=== PATIENT | male | born 1960 | race Caucasian/White ===

== ENCOUNTER 2017-10-15 08:14 | Emergency (ER) | payer BC, OTHER ==
[2017-10-15] MEDS ORDERED: fentaNYL 100 MCG/2 ML VIAL IVP STA (08:47)
[2017-10-15] MEDS ORDERED: ONDANSETRON 4 MG/2 ML VIAL IVP STA (08:47)
[2017-10-15] MEDS ORDERED: KETOROLAC 30 MG/ML VIAL IVP STA (08:47)
[2017-10-15] MEDS ORDERED: SODIUM CHLORIDE 0.9% 1,000 ML IV ONE (08:47)
--- NOTE | 2017-10-15 08:50 | ED Physician Documentation ---
PD HPI ABD PAIN - Stated complaint Stated Complaint: SIDE/ABD PX - Chief complaint Chief Complaint: Abd Pain - History obtained from History obtained from: Patient, Family (spouse) - History of Present Illness Timing - onset: How many hours ago (8) Timing - details: Still present Quality: Pain Location: Periumbilical Radiation: Right flank Associated symptoms: Vomiting (once) Similar symptoms before: Diagnosis (History of kidney stones.) - Additional information Additional information: The patient is a 57-year-old male who presents with abdominal pain that started acutely about 1 AM this morning. It is mostly periumbilical, but radiates to the right side. He has had one episode of vomiting. He denies diarrhea, dysuria, or fever. He has a history of kidney stones, but states this does not feel like his previous kidney stones. He has had no abdominal surgery. Review of Systems Constitutional: denies: Fever Nose: denies: Congestion Throat: denies: Sore throat Cardiac: denies: Chest pain / pressure Respiratory: denies: Dyspnea, Cough GI: reports: Abdominal Pain, Nausea, Vomiting. denies: Diarrhea : denies: Dysuria Skin: denies: Rash Musculoskeletal: denies: Back pain Neurologic: denies: Generalized weakness, Headache PD PAST MEDICAL HISTORY - Past Medical History Past Medical History: Yes Endocrine/Autoimmune: None : Kidney stones - Past Surgical History Past Surgical History: No - Present Medications Home Medications: Ambulatory Orders Medication Instructions Recorded Confirmed No Known Home Medications [No 10/15/17 10/15/17 Known Home Medications] - Allergies Allergies/Adverse Reactions: Allergies Allergy/AdvReac Type Severity Reaction Status Date / Time No Known Drug Allergies Allergy Verified 10/15/17 08:28 - Living Situation Living Situation: reports: With spouse/s.o. - Social History Does the pt smoke?: No Smoking Status: Never smoker PD ED PE NORMAL - Vitals Vital signs reviewed: Yes (hypertensive) - General General: Alert and oriented X 3, Well developed/nourished - HEENT HEENT: Atraumatic, Moist mucous membranes - Neck Neck: Supple, no meningeal sign, No JVD - Cardiac Cardiac: RRR, No murmur - Respiratory Respiratory: No respiratory distress, Clear bilaterally - Abdomen Abdomen: Normal bowel sounds, Soft, Non tender, Other (No tenderness with palpation of the abdomen, despite abdominal pain.) - Back Back: No CVA TTP - Derm Derm: No rash - Extremities Extremities: No edema, No calf tenderness / cord - Neuro Neuro: Alert and oriented X 3, No motor deficit, Normal speech Results - Vitals Vitals: Vital Signs - 24 hr 10/15/17 10/15/17 10/15/17 08:25 10:07 13:06 Temperature 36.1 C L 36.3 C L Heart Rate 70 81 78 Respiratory 18 20 18 Rate Blood Pressure 162/100 H 107/47 L 110/50 L O2 Saturation 99 98 98 Oxygen O2 Source Room air - Labs Labs: Laboratory Tests 10/15/17 10/15/17 10/15/17 08:30 08:30 09:25 WBC 12.0 H RBC 4.75 Hgb 14.4 Hct 41.6 L MCV 87.5 MCH 30.2 MCHC 34.5 RDW 14.1 Plt Count 148 MPV 8.9 Neut # (Auto) 10.6 H Lymph # (Auto) 1.0 L [place] # (Auto) 0.3 Eos # (Auto) 0.0 Baso # (Auto) 0.1 Absolute Nucleated RBC 0.00 Nucleated RBC % 0.0 Sodium 137 Potassium 4.2 Chloride 104 Carbon Dioxide 24 Anion Gap 9.0 BUN 15 Creatinine 0.9 Estimated GFR (MDRD) 86 L Glucose 157 H Calcium 9.4 Total Bilirubin 0.8 AST 36 ALT 29 Alkaline Phosphatase 63 Total Protein 7.4 Albumin 4.4 Globulin 3.0 Albumin/Globulin Ratio 1.5 Lipase 28 Urine Color YELLOW Urine Clarity CLEAR Urine pH 7.0 Ur Specific [place] 1.015 Urine Protein NEGATIVE Urine Glucose (UA) NEGATIVE Urine Ketones TRACE Urine Occult Blood NEGATIVE Urine Nitrite NEGATIVE Urine Bilirubin NEGATIVE Urine Urobilinogen 0.2 (NORMAL) Ur Leukocyte Esterase NEGATIVE Ur Microscopic Review NOT INDICATED Urine Culture Comments NOT INDICATED - Rads (name of study) CT abd/pelvis w/o Radiology: Prelim report reviewed, EMP read contemporaneously, See rad report ( 1) Nonobstructing right renal calculus. No obstructing calculi are identified. No hydronephrosis. 2) normal appendix. No bowel obstruction. No diverticulitis. 3) cholelithiasis versus gallbladder sludge. No pericholecystic edema.) RUQ U/S Radiology: Prelim report reviewed, EMP read contemporaneously, See rad report (1 ) No sonographic evidence of cholecystitis. Gallbladder sludge. 2) 1 cm echogenic right lower pole renal focus. Follow-up ultrasound for stability in 6 months versus definitive characterization with multiphase contrast-enhanced CT renal mass protocol.) PD MEDICAL DECISION MAKING - ED course Complexity details: reviewed results, re-evaluated patient, considered differential, d/w patient, d/w family ED course: The patient's presentation is most consistent with biliary colic. Given his past history of kidney stones, renal colic was initially considered. However urinalysis was negative, and CT scan of the abdomen and pelvis without contrast revealed no evidence of ureteral stone or hydronephrosis, although it did reveal a nonobstructing renal calculus, as well as evidence of gallstone versus sludge in the gallbladder. Subsequent ultrasound of the right upper quadrant reveals gallbladder sludge, without evidence of cholecystitis. CBC reveals a very slightly elevated blood cell count of 12.0. Chemistry panel is normal. Treatment in the emergency department included administration of normal saline 1 L IV, ketorolac 30 mg IV, fentanyl 50 g IV, and ondansetron 4 mg IV. His symptoms completely resolved with the above treatment and did not recur during the remainder of his time in the emergency department. On repeated abdominal examinations his abdomen is totally benign. I discussed with him and his the likely diagnosis, symptomatic treatment and outpatient follow-up, as well as potentially worrisome signs or symptoms that should prompt reevaluation in the emergency department. - Sepsis Event Vital Signs: Vital Signs - 24 hr 10/15/17 10/15/17 10/15/17 08:25 10:07 13:06 Temperature 36.1 C L 36.3 C L Heart Rate 70 81 78 Respiratory 18 20 18 Rate Blood Pressure 162/100 H 107/47 L 110/50 L O2 Saturation 99 98 98 Oxygen O2 Source Room air Departure - Departure Disposition: 01 Home, Self Care Clinical Impression: Sludge in gallbladder, Renal calculus, right Abdominal pain Qualifiers: Abdominal location: periumbilical Qualified Code(s): R10.33 - Periumbilical pain Condition: Stable Instructions: ED Abdominal Pain Unkn Cause Follow-Up: Alex Cintron MD [Primary Care Provider] - Comments: Drink plenty of fluids. Follow up with your primary physician within 1-2 weeks. Call to schedule appointment. Return to the emergency department if you develop recurrent or increasing abdominal pain, persistent vomiting, or otherwise worsening symptoms. Discharge Date/Time: 10/15/17 13:28
[2017-10-15 08:55] LABS: BASOPHILS # (AUTO) 0.1 10^3/uL (0.0-0.1); BASOPHILS % (AUTO) 0.6 %; HGB - HEMOGLOBIN 14.4 g/dL (14.0-18.0); LYMPHOCYTES % (AUTO) 8.1 %; MEAN CORPUSCULAR HEMOGLOBIN 30.2 pg (27.0-31.0); MEAN CORPUSCULAR HGB CONC 34.5 g/dL (32.0-36.0); MEAN CORPUSCULAR VOLUME 87.5 fL (80.0-94.0); MEAN PLATELET VOLUME 8.9 fL (7.4-11.4); MONOCYTES # (AUTO) 0.3 10^3/uL (0.0-1.0); MONOCYTES % (AUTO) 2.6 %; NEUTROPHILS # (AUTO) 10.6 10^3/uL (1.5-6.6); NEUTROPHILS % (AUTO) 88.7 %; PLT - PLATELET COUNT 148 10^3/uL (130-450); RED BLOOD COUNT 4.75 10^6/uL (4.70-6.10); RED CELL DISTRIBUTION WIDTH 14.1 % (12.0-15.0)
[2017-10-15 09:08] LABS: ALBUMIN 4.4 g/dL (3.2-5.5); ALBUMIN/GLOBULIN RATIO 1.5 (1.0-2.2); BILIRUBIN,TOTAL 0.8 mg/dL (0.2-1.0); CALCIUM 9.4 mg/dL (8.5-10.3); CREATININE 0.9 mg/dL (0.6-1.2); TOTAL PROTEIN 7.4 g/dL (6.7-8.2)
--- NOTE | 2017-10-15 09:34 | CT Report ---
Procedure Date: 10/15/2017 Accession Number: [id number] / [id number] Procedure: CT - Abdomen/Pelvis W/O CPT Code: FULL RESULT: EXAM: CT ABDOMEN AND PELVIS EXAM DATE: 10/15/2017 09:04 AM. CLINICAL HISTORY: Right-sided abdominal pain. History of kidney stones. COMPARISONS: 07/19/2006. TECHNIQUE: Routine helical CT imaging was performed through the abdomen and pelvis. IV contrast: None. Enteric contrast: No. Reconstructions: Coronal and sagittal. In accordance with CT protocol optimization, one or more of the following dose reduction techniques were utilized for this exam: automated exposure control, adjustment of mA and/or KV based on patient size, or use of iterative reconstructive technique. FINDINGS: Lung Bases: Lung bases are clear. Included portions of the heart are unremarkable. Small hiatal hernia. Liver: Within the left lobe of the liver is a low-attenuation lesion too small to characterize measuring 6 mm. Gallbladder/Bile Ducts: High-density seen involving half of the gallbladder likely represents sludge/stones. No pericholecystic edema. Spleen: Normal. Pancreas: Normal. Adrenal Glands: Normal. Kidneys: Upper pole right renal 3 mm nonobstructing calculus. No other calculi are identified. No ureteral calculi. No ureteral dilatation. No hydronephrosis. Peritoneal Cavity/Bowel: Stomach is nondistended. No small bowel obstruction. Duodenal diverticula there is noted in the proximal transverse duodenum. No small bowel obstruction , thickening or small bowel dilatation. Small fatty umbilical hernia. Appendix is normal. Small volume of stool in the colon. No diverticulitis. No free air. No enlarged retroperitoneal or mesenteric lymph nodes. Pelvic Organs: No bladder calculi. Left posterior pelvic calcified phlebolith. No pelvic adenopathy. Prostate and seminal vesicles are unremarkable. Vasculature: Vascular calcifications. No aneurysm. Bones: Degenerative changes of the lower thoracic and lumbar spine. Lumbar facet arthropathy. Levoscoliosis of the lumbar spine. No acute osseous abnormalities. Other: None. IMPRESSION: 1. Nonobstructing right renal calculus. No obstructing calculi are identified. No hydronephrosis. 2. Normal appendix. No bowel obstruction. No diverticulitis. 3. Cholelithiasis versus gallbladder sludge. No pericholecystic edema. [facility]
[2017-10-15 09:52] LABS: BILIRUBIN,URINE NEGATIVE (NEGATIVE); GLUCOSE, URINE (UA) NEGATIVE (NEGATIVE); KETONES,URINE (UA) TRACE mg/dL (NEGATIVE); LEUKOCYTE ESTERASE, URINE NEGATIVE (NEGATIVE); NITRITE,URINE NEGATIVE (NEGATIVE); OCCULT BLOOD,URINE NEGATIVE (NEGATIVE); PROTEIN,URINE NEGATIVE (NEGATIVE); UROBILINOGEN,URINE 0.2 (NORMAL) E.U./dL (NORMAL)
[2017-10-15 09:57] LABS: CLARITY,URINE CLEAR (CLEAR)
--- NOTE | 2017-10-15 12:06 | Ultrasound Report ---
Procedure Date: 10/15/2017 Accession Number: [id number] / [id number] Procedure: US - Abdomen Limited CPT Code: FULL RESULT: EXAM: Abdomen Limited DATE: 10/15/2017 11:53 AM CLINICAL HISTORY: abd. pain; suspected gallstones or sludge on CT. COMPARISON: CT abdomen pelvis 07/19/2006. TECHNIQUE: Real-time scanning was performed with static images obtained. FINDINGS: Liver: Normal in size and echotexture. 16.3 cm. Main portal vein flow: Hepatopetal. Gallbladder: The gallbladder demonstrates a thin wall, no pericholecystic fluid. While the sonographic Macedo's sign could not be formally assessed due to the patient receiving pain medication, no pain was detected over the gallbladder. Gallbladder sludge is seen. Biliary System: Common bile duct measures 6 mm. No intrahepatic or extrahepatic ductal dilatation. Pancreas: Visualized portion is unremarkable. Kidney: Right: 11.1 cm longitudinally. Due to poor visualization, a 1 cm echogenic focus in the inferior pole of the right kidney could not be definitely characterized. There is no twinkle artifact to confirm that this is a nonobstructing calculus. There is no corresponding finding on the noncontrast CT in 2006. IVC is patent by grayscale of the level of the liver. IMPRESSION: No sonographic evidence of cholecystitis. Gallbladder sludge. 1 cm echogenic right lower pole renal focus. Follow-up ultrasound for stability in 6 months versus definitive characterization with multiphase contrast-enhanced CT renal mass protocol. [facility]
[2017-10-15 13:08] VITALS: BP 110/50
== END 2017-10-15 13:28 | disposition home or self-care (01) ==
LOC: ED 08:14
DX: K82.8 Other specified diseases of gallbladder (principal); N20.0 Calculus of kidney; R10.33 Periumbilical pain
CPT/HCPCS: 36415; 74176; 76705; 80053; 81001; 81003; 83690; 85025; 87086; 96361; 96374; 96375; 99283; 99284

== ENCOUNTER 2018-03-21 18:49 | Outpatient (CLI) | payer OTHER ==
--- NOTE | 2018-03-24 08:38 | Ultrasound Report ---
Reason: ECHOGENIC FOCUS IN RT KIDNEY, GB SLUDGE Procedure Date: 03/21/2018 Accession Number: [id number] / [id number] Procedure: US - Abdomen Limited CPT Code: FULL RESULT: EXAM: ABDOMEN ULTRASOUND LIMITED, RUQ EXAM DATE: 03/21/2018 07:51 PM. CLINICAL HISTORY: ECHOGENIC FOCUS IN RT KIDNEY, GB SLUDGE. COMPARISON: ABDOMEN LIMITED 10/15/2017 11:15 AM. TECHNIQUE: Real-time scanning was performed with static images obtained. FINDINGS: Liver: Liver parenchyma is heterogeneous and mildly hyperechoic. No discrete liver masses or intrahepatic bile duct dilation. However, evaluation for masses is limited secondary to the echogenicity. 14.2 cm. Main portal vein flow: Hepatopetal. Gallbladder: Gallbladder sludge. No gallstones, sonographic Macedo sign, wall thickening or pericholecystic fluid. Biliary System: CBD measures 4.2 mm. No intrahepatic or extrahepatic ductal dilatation. Right kidney: 11.5 cm. No hydronephrosis. No echogenic focus identified on current ultrasound. Other: Study limited by bowel gas and body habitus. IMPRESSION: 1. Gallbladder sludge. No sonographic findings concerning for cholelithiasis or acute cholecystitis. 2. Normal common bile duct. 3. Mildly fatty liver. No mass. 4. No right renal mass, stones or hydronephrosis. Echogenic focus no longer seen. [facility] ADDENDUM: 03/28/18 16:37 No concerning mass was seen on a CT performed 10/15/2017 or the current study. If the patient develops new or concerning symptoms, recommend cross-sectional imaging.
== END 2018-03-21 18:50 | disposition home or self-care (01) ==
LOC: DI 18:49
PROVIDERS: ATTEND Internal Medicine Medical Oncology
DX: K76.0 Fatty (change of) liver, not elsewhere classified (principal)
CPT/HCPCS: 76705

== ENCOUNTER 2021-09-08 13:02 | Outpatient (CLI) | payer OTHER ==
[2021-09-08 14:29] VITALS: BP 148/94
--- NOTE | 2021-09-08 14:29 | SLEEP CARE CONSULTATION ---
Information from patient questionnaire entered by Pio Trammell MA. I have reviewed and concur with the information entered by Pio Trammell MA. This document represents the service I personally performed and the decisions made by , Rebekah Valentine ARNP. History of Present Illness Service Date and Time: 09/08/2021 1302 Reason for Visit: New patient (PRIOR - [facility], 02/23/2021, AHI 47.2, CPAP? ) Chief Complaint: reports: Snoring, Observed pauses in breathing Date of Onset: 2-3 YEARS Usual bedtime: 930 - 1000 Time it takes to fall asleep: 10 MINUTES Snores at night: Yes Observed to quit breathing while asleep: Yes Number of times waking at night: 2 Reasons for waking at night: reports: Bathroom. denies: Choking, Snoring, Gasping for air Toss, Turn, or Twitch while sleeping: No Recalls having dreams: Yes (sometimes) Usually gets out of bed at: 0630 Feels refreshed in the morning: Yes Morning headache: No Sleepy or fatigued during the day: Yes (julia in afternoons, sometimes) Ever fallen asleep while driving: No Takes day naps: Yes (30-60 min nap; 2-3 times a week) Dreams during day naps: No Prior sleep studies: Yes Year and Where: [facility] 02/23/2021 Type of Sleep Study: Home sleep study Additional HPI information: I had the pleasure of seeing RICHARD ARIZA today regarding the possibility of him having a sleep disorder. He had a sleep study on 02/23/2021 by [facility] with an average AHI of 47.2 showing severe obstructive sleep apnea. His current complaints are snoring and observed pauses in breathing. He had his primary doctor refer him here because of the HST done in 02/2021. 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 Patient is and lives in [place]. Have you smoked in the past 12 months: No Alcohol use: Yes Alcohol amount and frequency: rare use Caffeine use: Yes Caffeine amount and frequency: 2 cups tea DAILY Family History Family history of sleep disordered breathing: Yes Family Hx Sleep Apnea: Sibling: Snoring, Sleep apnea - Treated Allergies and Home Medications Known drug allergies: No Drug allergies reviewed: Yes (NKDA) Home medication list reviewed: Yes Allergy and home medication list: Allergies No Known Drug Allergies Allergy (Verified 10/15/17 08:28) Supplements: Vitamin D B Complex Fish oil Vitamin C Review of Systems Weight gain over past 5 years: 15 lbs Gastrointestinal: denies: heartburn Urinary: reports: frequency (2x per night) Neurological: denies: headaches Psychiatric: denies: anxiety, depression Ear/Nose/Throat: reports: other (tinnitus) Physical Exam Vital signs obtained and entered by: Albino TRAMMELL CMA AANATALYA Blood Pressure: 148/94 (RESP 18. PULSE 73, RIGHT) Cuff size: wrist Heart Rate: 73 O2 Saturation: 96 (N95) Height: 6 ft 1 in Weight: 271 lb (CLOTH) Body Mass Index: 35.7 BMI Classification: Obese Neck circumference: 16.5 (INCHES) Mouth and throat: normal Soft palate: long Hard palate: normal Uvula: normal Uvula visualization: 50% Mallampati Class II Tongue: enlarged in size with teeth penaloza on lateral edges Tonsils: small Neck: normal w/o lymphadenopathy or thyromegaly Heart: regular rate and rhythm Lungs: clear bilaterally Impression and Plan 1. Obstructive Sleep Apnea-Hypopnea Syndrome, severe, with lowest oxygen saturation of 75%. Patient's last sleep study was in March which is just 6 months ago. Patient would like to just get started with therapy and he was agreeable to CPAP therapy due to the severity of his sleep apnea. Patient would like to avoid having to do another sleep study. We are just within a week or so of the 6-month period. The patient will be started on nasal autoCPAP therapy with pressure set at 5-15 cmH2O. As long as the insurance will authorize it without a further study, we will just move forward with treatment. Compliance guidelines also reviewed. A copy of compliance guidelines will be given for reference at check out. Because the apnea is more severe supine, I instructed to avoid sleeping supine using pillow positioning until able to start CPAP use. * Nasal auto CPAP therapy, pressure at 5-15 cm H2O. * Attempt to lose weight. * Avoid alcohol consumption near bedtime. * Avoid supine sleep until using CPAP. * The patient is again cautioned about driving until sleepiness completely resolves. * Return one month after CPAP obtained. I will assess response to therapy and compliance at that time. Counseling Topics: Weight loss health impact Prescriptions: Auto CPAP Visit Type: In Office Time Spent with Patient (minutes): 34 Provider Statement: I spent 100% of the Face to Face Visit with the patient with greater than 50% spent counseling the patient and coordination of care.
== END 2021-09-08 13:03 | disposition home or self-care (01) ==
LOC: SC 13:02
PROVIDERS: ATTEND Nurse Practitioner Family
DX: G47.33 Obstructive sleep apnea (adult) (pediatric) (principal); E66.9 Obesity, unspecified; Z68.35 Body mass index [BMI] 35.0-35.9, adult
CPT/HCPCS: 99203; 99212

== ENCOUNTER 2023-09-10 07:27 | Day surgery (SDC) | payer BC ==
[2023-09-10] MEDS: LACTATED RINGERS 1,000 ML IV ONE ×2 (07:39→09:18)
[2023-09-10] MEDS ORDERED: LIDOCAINE-MPF 2% 5 ML VIAL ONE (07:54)
[2023-09-10] MEDS ORDERED: PROPOFOL 500 MG/50 ML 500 MG/50 ML VIAL ONE (07:54)
--- NOTE | 2023-09-10 08:12 | ANESTHESIA ---
Pre-Anesthesia VS, & Labs - Diagnosis COLON SCREENING - Procedure COLONOSCOPY Vital Signs: Temp Pulse Resp BP Pulse Ox O2 Flow Rate 35.8 C L 73 13 95/66 97 09/10/23 07:39 09/10/23 07:39 09/10/23 07:39 09/10/23 07:39 09/10/23 07:39 Height: 6 ft Weight (kg): 123 kg Body Mass Index: 36.8 BMI Classification: Obese - NPO >8 hours (bowel prep; last water at 0530) Home Medications and Allergies No Known Home Medications 10/15/17 Allergies/Adverse Reactions: Allergies Allergy/AdvReac Type Severity Reaction Status Date / Time No Known Drug Allergies Allergy Verified 10/15/17 08:28 Anes History & Medical History - Anesthetic History Anesthesia Complications: reports: No previous complications Family history of Anesthesia Complications: Denies Family history of Malignant Hyperthermia: Denies - Medical History Cardiovascular: reports: None Pulmonary: reports: Sleep apnea, CPAP use Gastrointestinal: reports: Colon polyps, Other Urinary: reports: Kidney stones Neuro: reports: None Musculoskeletal: reports: Other Endocrine/Autoimmune: reports: None Blood Disorders: reports: None Skin: reports: None Smoking Status: Never smoker Psychosocial: reports: No issues indicated History of Cancer?: No - Surgical History General: reports: Colonoscopy Eyes Ears Nose Throat (EENT): reports: Other Results - EKG Results EKG Comparison: Reviewed EKG, Normal EKG Exam General: Alert, Oriented x3, Cooperative, No acute distress Dental: WNL Mouth Opening: Greater than 4 Fingerbreadths Neck Mobility: Normal Mallampati classification: I Thyromental Distance: 4-6 cm Respiratory: Lungs clear, Normal breath sounds, No respiratory distress, No accessory muscle use Cardiovascular: Regular rate, Normal S1, Normal S2, No murmurs Mental/Cognitive Status: Alert/Oriented X3, Normal for patient Cognitive Status: Within normal limits Plan Anesthesia Type: General Consent for Procedure(s) Verified and Reviewed: Yes Code Status: Attempt Resuscitation ASA classification: 2-Mild systemic disease Is this case an emergency?: No
[2023-09-10] MEDS ORDERED: PROPOFOL 200 MG/20 ML VIAL IVP ONE ×3 (08:47→09:07)
[2023-09-10 13:00] VITALS: BP 130/89; O2SAT 100
--- NOTE | 2023-09-10 14:19 | ANESTHESIA POST OP EVALUATION ---
Anesthesia Post Eval - Post Anesthesia Eval Vitals: Last Vital Signs Temp 36.7 C 09/10/23 09:16 Pulse 71 09/10/23 10:00 Resp 16 09/10/23 10:00 BP 130/89 H 09/10/23 10:00 Pulse Ox 100 09/10/23 10:00 O2 Flow Rate CV Function Including HR & BP: Stable Pain Control: Satisfactory Nausea & Vomiting: Negative Mental Status: Baseline Respiratory Status: Airway Patent Hydration Status: Satisfactory Anesthesia Complications: None
== END 2023-09-10 07:28 | disposition home or self-care (01) ==
LOC: SDS 07:27
PROVIDERS: ATTEND Surgery
PROC: 0DBM8ZZ Excision of Descending Colon, Via Natural or Artificial Opening Endoscopic (ICD-10-PCS; principal; 2023-09-10 08:30)
DX: Z12.11 Encounter for screening for malignant neoplasm of colon (principal); D12.4 Benign neoplasm of descending colon; G47.33 Obstructive sleep apnea (adult) (pediatric); E66.9 Obesity, unspecified; Z68.36 Body mass index [BMI] 36.0-36.9, adult
CPT/HCPCS: 45380; J7120